=== PATIENT | female | born 1935 | race Two or more races ===

== ENCOUNTER 2024-11-12 15:31 | Emergency (ER) | payer OTHER ==
[~2024-11-12] VITALS: Ht 157.5 cm; Wt 61.2 kg
[2024-11-12] MEDS ORDERED: SYNTHROID150 MCG PO (15:36)
[2024-11-12] MEDS ORDERED: CARVEDILOL ER40 MG PO (15:36)
[2024-11-12] MEDS ORDERED: AMIODARONE HCL100 MG (15:36)
[2024-11-12] MEDS ORDERED: IRBESARTAN300 MG PO (15:36)
[2024-11-12] MEDS ORDERED: XARELTO20 MG (15:36)
[2024-11-12 16:47] LABS: HEMATOCRIT 37.9 % (36.0-45.00); HEMOGLOBIN 12.4 g/dL (12.0-15.00); MEAN CELL VOLUME 87.9 fL (80.00-100.00); MEAN CORPUSCULAR HEMOGLOBIN 28.8 pg (27.00-32.0); MEAN CORPUSCULAR HGB CONC 32.8 g/dl (32.0-36.0); PLATELET COUNT 273 K/uL (150-450); RED BLOOD COUNT 4.32 M/uL (4.00-6.00); RED CELL DISTRIBUTION WIDTH 13.6 % (11.5-14.5)
[2024-11-12 17:13] LABS: INR 1.35; PARTIAL THROMBOPLASTIN TIME 33.4 SECONDS (22.0-34.0); PROTHROMBIN TIME 14.4 SECONDS (9.0-11.5)
[2024-11-12 17:14] LABS: CALCIUM 9.5 mg/dL (8.5-10.1); CREATININE SERUM 0.61 mg/dL (0.55-1.02); GFR 92.35; POTASSIUM 4.36 mEq/L (3.5-5.1)
== END 2024-11-12 18:05 | disposition home or self-care (01) ==
LOC: ER 15:32
PROVIDERS: Emergency Medicine
DX: I73.9 Peripheral vascular disease, unspecified (principal); Z91.013 Allergy to seafood